=== PATIENT | male | born 1955 | race Caucasian/White ===

== ENCOUNTER 2022-04-28 07:06 | Day surgery (SDC) | payer MEDICARE, SELFPAY ==
[2022-04-27 07:24] VITALS: BMI 22.9
--- NOTE | 2022-04-28 07:24 | P.HP_ITS ---
Same Day Surgery H&P Indication for Procedure/HPI DATE OF PROCEDURE: April 28, 2022 CHIEF COMPLAINT/INDICATIONFOR SURGICAL PROCEDURE: Constipation PREOP DIAGNOSIS: Change in bowel habits PLANNED PROCEDURE: Operation Date: 04/28/22 08:30 Proposed Procedures p Colonoscopy 02385,R10.9(Not Applicable) - Kendrick Woods MD 02/08/2022 This is a pleasant 67 years old gentleman never had a colonoscopy before.? Reports that his constipation is getting worse he denies bleeding per rectum and history of colon cancer.? Patient reports that his constipation is getting worse for quite some time now. 04/28/2022 Patient comes today for colonoscopy ROS All systems have been reviewed negative except as for the above or per problem list. Medications/Allergies* Home Medications Medication Instructions Recorded Confirmed Type diphenhydramine HCl 25 mg capsule 25 mg PO .Q 6- 8 hours PRN Allergy 02/08/22 04/27/22 History (Benadryl) Symptoms docusate sodium 100 mg capsule 100 mg PO BID 02/08/22 04/27/22 History (Colace) lisinopril 10 mg tablet 10 mg PO DAILY 02/08/22 04/27/22 History omeprazole 20 mg capsule,delayed 20 mg PO DAILY 02/08/22 04/27/22 History release atorvastatin 10 mg tablet 10 mg PO DAILY 04/27/22 04/27/22 History gabapentin 300 mg capsule 300 mg PO BID 04/27/22 04/27/22 History lactulose 10 gram/15 mL oral 15 ml PO DAILY 04/27/22 04/27/22 History solution (Enulose) metformin 500 mg tablet,extended 500 mg PO BID 04/27/22 04/27/22 History release 24 hr tizanidine 2 mg tablet 2 mg PO Q6H PRN muscle spasms 04/27/22 04/27/22 History Allergies/Adverse Reactions Allergy/AdvReac Type Severity Reaction Status Date / Time aspirin Allergy ALGY-Hives Verified 04/28/22 07:48 codeine Allergy Unknown Verified 04/28/22 07:48 Pertinent History/Comorbid Conditions* Social History Smoking and tobacco status: former smoker Pertinent Exam Findings alert, oriented x 3, regular rate & rhythm and procedure specific exam findings (Abdominal exam nontender nondistended soft) Recommendations Surgery/Procedure today (Colonoscopy with possible biopsy) Coding Level of Care Code Acute Clinical Quality Manager for Chg Fwd
--- NOTE | 2022-04-28 07:29 | ANES.PREANE2 ---
Pre-Anesthetic Assessment Height/Weight: Height 1.78 m Weight 72.575 kg Preop Diagnosis: Change in bowel habits Operation Date: 04/28/22 08:30 Proposed Procedures p Colonoscopy 64360,R10.9(Not Applicable) - Kendrick Woods MD Familial anesthetic complications: none Was Beta Jovanna taken within 24 hours: N/A Was Clonidine taken within 24 hours: N/A Social No alcohol and No tobacco Exam alert and oriented x 3 Airway Submandibular: within normal limits Cervical ROM: within normal limits Mallampati: Class III Dentition: false (upper dentures) and other (poor dentition, multiple missing on bottom) Pulmonary None reported CV/HEM Hypertension None reported Hepatic None reported GI Gastroesophageal Reflux Disease Metabolic Diabetes Mellitus and Hyperlipidemia [facility] [place] None reported Neuropsych None reported Anesthetic Plan ASA status: 3 Anesthesia: Anesthesia Evaluation and MAC Risk of > 500 ml blood loss (7ml/kg in children): No Medications/Allergies Home Medications Medication Instructions Recorded Confirmed Last Taken Type diphenhydramine HCl 25 mg capsule 25 mg PO .Q 6- 8 hours PRN Allergy 02/08/22 04/28/22 04/24/22 History (Benadryl) Symptoms docusate sodium 100 mg capsule 100 mg PO BID 02/08/22 04/28/22 04/24/22 History (Colace) lisinopril 10 mg tablet 10 mg PO DAILY 02/08/22 04/28/22 04/24/22 History omeprazole 20 mg capsule,delayed 20 mg PO DAILY 02/08/22 04/28/22 04/24/22 History release pioglitazone 30 mg tablet (Actos) 30 mg PO DAILY #30 tabs 03/08/22 04/28/22 04/24/22 Rx sildenafil 100 mg tablet (Viagra) 100 mg PO DAILY PRN sexual 03/08/22 04/28/22 Unknown Rx activity #10 tabs atorvastatin 10 mg tablet 10 mg PO DAILY 04/27/22 04/28/22 04/24/22 History gabapentin 300 mg capsule 300 mg PO BID 04/27/22 04/28/22 04/24/22 History lactulose 10 gram/15 mL oral 15 ml PO DAILY 04/27/22 04/28/22 04/24/22 History solution (Enulose) metformin 500 mg tablet,extended 500 mg PO BID 04/27/22 04/28/2204/24/22 History release 24 hr tizanidine 2 mg tablet 2 mg PO Q6H PRN muscle spasms 04/27/22 04/28/22 04/24/22 History Allergies Allergy/AdvReac Type Severity Reaction Status Date / Time aspirin Allergy ALGY-Hives Verified 04/27/22 07:17 codeine Allergy Unknown Verified 04/27/22 07:17 [facility] Anesthesia Social History Smoking and tobacco status: former smoker Data Anesthesia Cardiac Studies: No Data to Display
[2022-04-28 07:30] VITALS: BP 151/100; PULSE 72; RESP 18; TEMP 36.5; O2SAT 97
[2022-04-28 07:41] LABS: Glucose Point of Care 131 mg/dL (70-110)
[2022-04-28] MEDS: sodium chloride 0.9% 1,000 ML 30 ML IV (07:42)
[2022-04-28 08:46] VITALS: BP 116/71; PULSE 77; RESP 16; TEMP 36.1; O2SAT 98
[2022-04-28 08:59] VITALS: BP 142/88; PULSE 73; RESP 18; O2SAT 95
--- NOTE | 2022-04-28 15:31 | ANE.PACU2 ---
Inpatient post-anesthesia follow up: Airway intact: Yes Vital signs: Temperature 97.0 F Pulse Rate 73 Respiratory Rate 18 Blood Pressure 142/88 Pulse Oximetry 95 Oxygen Delivery Me thod Room Air Oxygen Flow Rate 3 Fraction of Inspir ed Oxygen Hydration adequate: Yes Nausea and vomiting: No Pain level: 1 Mental status: Baseline
== END 2022-04-28 09:19 | disposition home or self-care (01) ==
PROVIDERS: PCP Nurse Practitioner Family; Visit Provider Surgery
PROC: 0DJD8ZZ Inspection of Lower Intestinal Tract, Via Natural or Artificial Opening Endoscopic (ICD-10-PCS; CPT 45378; principal; 2022-04-28 08:30)
DX: R10.9 Unspecified abdominal pain (principal); D12.2 Benign neoplasm of ascending colon; D12.4 Benign neoplasm of descending colon; K21.9 Gastro-esophageal reflux disease without esophagitis; E11.9 Type 2 diabetes mellitus without complications; E78.5 Hyperlipidemia, unspecified; Z87.891 Personal history of nicotine dependence
CPT/HCPCS: 36416; 45385; 82962; 88305; J2704; J7030

== ENCOUNTER → 2022-05-11 11:36 | Outpatient (BNVA) | payer MEDICARE, SELFPAY | PROVIDERS: PCP Nurse Practitioner Family; Visit Provider Surgery | DX: Z09 Encounter for follow-up examination after completed treatment for conditions other than malignant neoplasm (principal) | CPT/HCPCS: 99212 ==

== ENCOUNTER → 2022-09-05 14:48 | Outpatient (BNVA) | payer MEDICARE, SELFPAY | PROVIDERS: PCP Nurse Practitioner Family; Referring Provider Nurse Practitioner Family; Visit Provider Orthopaedic Surgery | DX: M54.50 Low back pain, unspecified (principal) | CPT/HCPCS: 72110; 99204 ==

== ENCOUNTER → 2022-09-28 09:58 | Outpatient (BNVA) | payer MEDICARE, SELFPAY | PROVIDERS: PCP Nurse Practitioner Family; Referring Provider Orthopaedic Surgery; Visit Provider Anesthesiology Pain Medicine | DX: M54.50 Low back pain, unspecified (principal); M79.604 Pain in right leg; M79.605 Pain in left leg | CPT/HCPCS: 99204 ==

== ENCOUNTER → 2022-10-03 10:50 | Outpatient (BNVA) | payer MEDICARE, SELFPAY | PROVIDERS: PCP Nurse Practitioner Family; Visit Provider Podiatrist Foot & Ankle Surgery | DX: E11.42 Type 2 diabetes mellitus with diabetic polyneuropathy (principal); L60.3 Nail dystrophy; M21.611 Bunion of right foot; M21.622 Bunionette of left foot; M21.612 Bunion of left foot; M21.621 Bunionette of right foot; Z79.84 Long term (current) use of oral hypoglycemic drugs | CPT/HCPCS: 11721; 99204 ==

== ENCOUNTER 2022-10-25 12:54 | Outpatient (CLI) | payer MEDICARE, SELFPAY ==
--- NOTE | 2022-10-25 13:45 | MR_ITS ---
WS: [id number] MRI LUMBAR SPINE NONCONTRAST HISTORY: low back pain, RIGHT lower extremity pain. COMPARISON: None available. TECHNIQUE: Sagittal and axial multisequence imaging is submitted. Normal lumbar alignment with no compression fractures or marrow edema. Disc spaces and vertebral body heights are well-preserved. Conus terminates normally at L1. L1-L2: Normal. L2-L3: Normal. L3-L4: Mild bilateral facet joint arthritis. L4-L5: Mild annular disc bulge. Disc asymmetrically bulges into the LEFT foramen. No significant sten osis. There is also mild encroachment into the subarticular recesses bilaterally, slightly greater on the LEFT. Very minimal contact on the LEFT traversing L5 nerve root. Very minimal encroachment into the LEFT foramen. L5-S1: Mild annular disc bulge with a central disc protrusion. Mild facet arthritis. Very slight encr oachment upon the S1 nerve roots but no high-grade stenosis. MR/MR lumbar spine wo con* [id number] IMPRESSION: 1. No high-grade central or foraminal stenosis. 2. Mild disc bulging at L4-5 with very minimal contact on the LEFT traversing L5 nerve root. Very mild encroachment into the LEFT foramen due to a broad-base d LEFT foraminal disc bulge. 3. Very shallow central disc protrusion with very slight encroachment upon the S1 nerve roots.
== END 2022-10-25 12:55 | disposition home or self-care (01) ==
PROVIDERS: PCP Nurse Practitioner Family; Visit Provider Orthopaedic Surgery
DX: M51.36 Other intervertebral disc degeneration, lumbar region (principal); M54.50 Low back pain, unspecified
CPT/HCPCS: 72148

== ENCOUNTER → 2022-12-21 09:56 | Outpatient (BNVA) | payer MEDICARE, SELFPAY | PROVIDERS: PCP Nurse Practitioner Family; Visit Provider Anesthesiology Pain Medicine | DX: M54.50 Low back pain, unspecified; M79.604 Pain in right leg; M79.605 Pain in left leg | CPT/HCPCS: 99214 ==

== ENCOUNTER → 2023-01-15 13:20 | Outpatient (BNVA) | payer MEDICARE, SELFPAY | PROVIDERS: PCP Nurse Practitioner Family; Visit Provider Anesthesiology Pain Medicine | DX: M47.816 Spondylosis without myelopathy or radiculopathy, lumbar region (principal) | CPT/HCPCS: 64493; 64494; 64495; J3490 ==

== ENCOUNTER → 2023-02-27 09:57 | Outpatient (BNVA) | payer MEDICARE, SELFPAY | PROVIDERS: PCP Nurse Practitioner Family; Visit Provider Nurse Practitioner Family | DX: L57.0 Actinic keratosis (principal); D48.5 Neoplasm of uncertain behavior of skin; D22.62 Melanocytic nevi of left upper limb, including shoulder; L81.4 Other melanin hyperpigmentation | CPT/HCPCS: 11102; 17000; 99203 ==

== ENCOUNTER → 2023-05-01 09:49 | Outpatient (BNVA) | payer MEDICARE, SELFPAY | PROVIDERS: PCP Nurse Practitioner Family; Visit Provider Anesthesiology Pain Medicine | DX: M54.50 Low back pain, unspecified; M79.604 Pain in right leg; M79.605 Pain in left leg | CPT/HCPCS: 99214 ==

== ENCOUNTER → 2023-06-06 12:52 | Outpatient (BNVA) | payer MEDICARE, SELFPAY | PROVIDERS: PCP Nurse Practitioner Family; Visit Provider Anesthesiology Pain Medicine | DX: M47.816 Spondylosis without myelopathy or radiculopathy, lumbar region (principal) | CPT/HCPCS: 64635; 64636 ==

== ENCOUNTER → 2023-06-18 12:06 | Outpatient (BNVA) | payer MEDICARE, SELFPAY | PROVIDERS: PCP Nurse Practitioner Family; Visit Provider Anesthesiology Pain Medicine | DX: M47.816 Spondylosis without myelopathy or radiculopathy, lumbar region (principal) | CPT/HCPCS: 64635; 64636; J1030 ==

== ENCOUNTER → 2023-09-25 09:47 | Outpatient (BNVA) | payer MEDICARE, SELFPAY | PROVIDERS: PCP Nurse Practitioner Family; Visit Provider Podiatrist Foot & Ankle Surgery | DX: E11.42 Type 2 diabetes mellitus with diabetic polyneuropathy (principal); L60.3 Nail dystrophy; M21.611 Bunion of right foot; M21.612 Bunion of left foot; M21.621 Bunionette of right foot; M21.622 Bunionette of left foot; D18.01 Hemangioma of skin and subcutaneous tissue; Z79.84 Long term (current) use of oral hypoglycemic drugs | CPT/HCPCS: 99213 ==